=== PATIENT | female | born 1970 | race Caucasian/White ===

== ENCOUNTER → 2016-07-09 | Day surgery (SDC) | payer OTHER ==
[~2016-07-09] MED LIST: BUMEX; DITROPAN5 MG PO; EFFEXOR75 M1 PO; GLUCOPHAGE500 M1 PO; NADOLOL40 MG PO; NEURONTIN300 MG PO; OMEPRAZOLE20 M1 PO; PRINIVIL40 MG PO; PROPYLTHIOURACIL1 GM; SPIRONOLACTONE50 MG PO; VOLTAREN75 MG PO; ZYRTEC10 M1 PO
--- NOTE | ~2016-07-09 | OR ---
Unit #: [id number] #: [id number] Patient: SAVITA DAVE [id number] [address] [address] [id number] MR#: [id number] NAME: SAVITA DAVE ROOM: Date of Procedure: 07/09/2016 Admission Date: 07/09/2016 Surgeon: Jas Sommers M.D. : 1970 Attending Physician: Jas Sommers M.D. Primary Care Physician: Generic Doctor Not In System OPERATIVE REPORT PREOPERATIVE DIAGNOSIS Medial meniscal tear of left knee. POSTOPERATIVE DIAGNOSES Medial meniscal tear of left knee with lateral compartment and medial compartment arthritis. PROCEDURES PERFORMED Arthroscopic partial medial meniscectomy. ESTIMATED BLOOD LOSS Less than 25. DESCRIPTION OF PROCEDURE The patient was brought to the operating room, given a general anesthetic. Tourniquet placed around the left thigh. The left leg was exsanguinated and tourniquet inflated to 300. The arthroscope was introduced through the inferolateral portal. The knee was visualized. Suprapatellar pouch was free of debris as well as the medial and lateral gutters. The medial compartment was entered. There was a tear in the posterior horn of the medial meniscus. This was resected using a straight and up-biting basket and the 3.5 incisor blade. The patient did have grade 2 to 3 chondral changes in the medial compartment. The lateral compartment was visualized on the tibia that was almost down to bone. There was a small tear in the anterior horn of the lateral meniscus. This was resected with the 3.5 incisor blade. The remaining portion of the meniscus was probed and found to be stable. We then removed all the fluid from the knee. The joint was injected with 15 mL of 0.5% plain Marcaine. Sterile dressing applied and the patient's tourniquet was released and general anesthetic reversed. Dictated by... Virgilio Murillo/pernell TD: 07/10/2016 07:26 JOB #: [id number] Unit #: [id number] #: [id number] Patient: SAVITA DAVE OPERATIVE REPORT X Jas Sommers MD PROCEDURE OPERATIVE NOTE
[2016-07-09 09:32] LABS: HEMATOCRIT 42.4 % (35.0-45.0); HEMOGLOBIN 13.7 gm/dL (12.0-16.0); MEAN CELL VOLUME 83.5 FL (83-96); MEAN CORPUSCULAR HEMOGLOBIN 26.9 PG (28-34); MEAN CORPUSCULAR HGB CONC 32.2 g/dL (30-36); MEAN PLATELET VOLUME 9.4 FL (6.5-11.5); RED BLOOD COUNT 5.08 X10e (3.90-5.30); RED CELL DISTRIBUTION WIDTH 15.7 % (11.0-15.5); WHITE BLOOD COUNT 11.8 X10e3 (4.0-10.5)
== END | disposition home or self-care (01) ==
LOC: CSUR 08:23
PROVIDERS: Orthopaedic Surgery
DX: S83.242A Other tear of medial meniscus, current injury, left knee, initial encounter (principal); M17.12 Unilateral primary osteoarthritis, left knee; J44.9 Chronic obstructive pulmonary disease, unspecified; K21.9 Gastro-esophageal reflux disease without esophagitis; E05.90 Thyrotoxicosis, unspecified without thyrotoxic crisis or storm; F17.210 Nicotine dependence, cigarettes, uncomplicated; I50.9 Heart failure, unspecified; E11.9 Type 2 diabetes mellitus without complications; F41.9 Anxiety disorder, unspecified; Z80.9 Family history of malignant neoplasm, unspecified; Z83.3 Family history of diabetes mellitus; Z79.899 Other long term (current) drug therapy
CPT/HCPCS: 82947; 84703; 85027; J2250; J3010